=== PATIENT | female | born 1930 | race Caucasian/White ===

== ENCOUNTER → 2017-03-18 | Outpatient (CLI) | payer OTHER ==
--- NOTE | 2017-03-19 08:28 | MAMMOGRAPHY REPORT ---
BILATERAL DIGITAL SCREENING MAMMOGRAM WITH CAD: 03/18/2017 CLINICAL HISTORY: Routine screening examination. TECHNIQUE: Bilateral CC and MLO views were obtained. Current study was also evaluated with a Comput er Aided Detection (CAD) system. COMPARISON: Comparison is made to exams dated: 03/12/2016 mammogram, 03/09/2014 mammogram, 03/02/2013 mammogram, 02/28/2012 mammogram, 03/10/2015 mammogram, and 02/05/2011 mammogram - [facility]. BREAST COMPOSITION: The tissue of both breasts is heterogeneously dense, which may obscure small ma sses. FINDINGS: There are mild vascular calcifications in the breasts. An 11 mm circumscribed mass in the anterior right breast is stable in size dating back to at least 12/29/2008, therefore likely benign . No new suspicious mass, architectural distortion or cluster of microcalcifications is seen. IMPRESSION: ACR BI-RADS CATEGORY 1: NEGATIVE There is no mammographic evidence of malignancy. A 1 year screening mammogram is recommended. The p atient will receive written notification of the results. Approximately 10% of breast cancers are not detected with mammography. A negative mammographic repor t should not delay biopsy if a clinically suggestive mass is present. Cande George M.D. ay/:03/18/2017 15:36:48 Tractor Operator: Adry CABRAL(Damien)(M), [facility] letter sent: Normal 1/2 BI-RADS Code: ACR BI-RADS Category 1: Negative
== END | disposition home or self-care (01) ==
LOC: C.MAMM 13:57
PROVIDERS: ATTEND Internal Medicine
DX: Z12.31 Encounter for screening mammogram for malignant neoplasm of breast (principal)

== ENCOUNTER → 2017-08-11 | Outpatient (CLI) | payer OTHER ==
--- NOTE | 2017-08-11 15:50 | MAMMOGRAPHY REPORT ---
ULTRASOUND OF BOTH BREASTS: 08/11/2017 CLINICAL HISTORY: 86-year-old woman presents with new focal mastalgia in the 9:00 right breast, and l ower outer quadrant of the left breast. The patient declined mammography for diagnostic workup of this new symptom of pain in both breasts. She reports the pain has been present for approximately 2 months, and it comes and goes, worse with p alpation. No palpable lump, skin changes or nipple discharge. Patient's most recent prior mammogram was performed 03/18/2017. Further discussion ensued explaining that the standard of care for a new focal breast complaint is ma mmogram plus ultrasound, particularly when the mammogram was performed greater than one month prior. However, the patient still declined mammography at this appointment. COMPARISON: Comparison is made to exams dated: 03/18/2017 mammogram, 03/12/2016 mammogram, 03/10/2015 ma mmogram, 03/09/2014 mammogram, 03/02/2013 mammogram, and 02/28/2012 mammogram - [facility]. FINDINGS: Targeted ultrasound was performed in both breasts, in the areas of pain pointed out by the patient. In the 9:00 right breast, 7 cm from the nipple in the area of pain, which was also elicite d during real-time ultrasound, there is sonographically normal tissue area and no evidence of a suspi cious solid or cystic mass. In the area of pain within the lower outer quadrant of the left breast e xtending from 3:00 through 4:00 and 5:00 axes, sonographically normal tissue is seen without a suspic ious solid or cystic mass. IMPRESSION: ACR BI-RADS CATEGORY 0: INCOMPLETE EVALUATION: NEED ADDITIONAL IMAGING EVALUATION There is no targeted sonographic evidence of malignancy or other suspicious abnormality in the areas of pain pointed out by the patient, within the 9:00 right breast and lower outer quadrant of the left breast. For completeness sake, the proper diagnostic workup of a new focal complaint in either [address] is mammogram plus ultrasound, and after this was explained to the patient she still declined mammo graphy at this appointment. Although this workup is technically incomplete, no suspicious sonographi c abnormality was identified. Therefore, would recommend follow-up based on clinical suspicion. These results and recommendations were discussed with the patient at the time of the exam. Cande vann/:08/11/2017 13:34:32 Supervisor Electrolytic Tinning: Dr. Cande George, [facility] letter sent: Addl Imaging 0 BI-RADS Code: ACR BI-RADS Category 0: Incomplete Evaluation: Need Additional Imaging Evaluation
== END | disposition home or self-care (01) ==
LOC: C.MAMM 10:04
PROVIDERS: ATTEND Obstetrics & Gynecology
DX: N64.4 Mastodynia (principal)

== ENCOUNTER → 2017-08-22 | Outpatient (CLI) | payer OTHER ==
--- NOTE | 2017-08-22 15:47 | MAMMOGRAPHY REPORT ---
BILATERAL DIGITAL DIAGNOSTIC MAMMOGRAM TOMOSYNTHESIS WITH CAD: 08/22/2017 CLINICAL HISTORY: The patient was seen here 08/11/2017 for complaints of bilateral breast pain. She d eclined mammography and had ultrasound performed at that time, which showed no abnormalities at the s ites of pain although mammograms were recommended for complete diagnostic workup. The patient return s today for bilateral mammograms. She reports that the pain has improved. TECHNIQUE: Breast tomosynthesis in addition to standard 2D mammography was performed. Current study was also evaluated with a Computer Aided Detection (CAD) system. Bilateral CC and MLO 2-D and tomosy nthesis images were obtained. COMPARISON: Comparison is made to exams dated: 08/11/2017 ultrasound, 03/18/2017 mammogram, 03/12/2016 m ammogram, 03/10/2015 mammogram, 03/09/2014 mammogram, and 03/02/2013 mammogram - [facility]. BREAST COMPOSITION: The tissue of both breasts is heterogeneously dense, which may obscure small mas ses. FINDINGS: Square markers were placed at the site of bilateral breast pain in the right superior post erior breast and left 6:00 posterior breast. There are no suspicious masses, calcifications, or area s of architectural distortion noted in either breast. There has been no significant interval change compared to prior exams. Partially circumscribed and partially obscured benign-appearing 7 mm mass i n the right upper outer quadrant is stable dating back to at least the 2008 exam. IMPRESSION: ACR BI-RADS CATEGORY 2: BENIGN There is no mammographic evidence of malignancy in either breast. Recommend clinical follow-up for b ilateral breast pain, and recommend routine bilateral screening mammograms in one year. The patient has been verbally notified of the results. Approximately 10% of breast cancers are not detected with mammography. A negative mammographic report should not delay biopsy if a clinically suggestive mass is present. Christine Nickerson M.D. ah/:08/22/2017 12:00:05 Construction Area Manager: Magali CABRAL(Damien)(M), [facility] letter sent: Normal 1/2 BI-RADS Code: ACR BI-RADS Category 2: Benign
== END | disposition home or self-care (01) ==
LOC: C.MAMM 11:20
PROVIDERS: ATTEND Obstetrics & Gynecology
DX: N64.4 Mastodynia (principal)